=== PATIENT | male | born 1950 | race Caucasian/White ===

== ENCOUNTER 2019-03-14 09:04 | Outpatient (CLI) | payer MEDICARE, BC ==
--- NOTE | 2019-03-14 10:02 | CT ---
EXAM: CT chest without contrast per low-dose cancer screening protocol HISTORY: History of smoking and nicotine dependence; quit smoking in October with greater than 40 pack-y ear history COMPARISON: None TECHNIQUE: Multiple contiguous axial images were obtained in a CT of the chest without contrast per l ow-dose cancer screening protocol. Sagittal and coronal reformats were performed. FINDINGS: Pulmonary nodules: No suspicious pulmonary nodules are seen. No focal infiltrates are seen. Pleural space: No pneumothorax or pleural effusion are seen. Heart: The heart is normal in size. Calcifications are seen in the coronary arteries, aortic valve, a nd mitral valve. Mediastinum: No hilar or mediastinal lymphadenopathy appreciated on this limited noncontrast examinat ion. Bones: Mild degenerative changes are seen in the spine.. Visualized subdiaphragmatic structures: There is a 2.2 cm left adrenal mass. This has a mean Hounsfie ld unit value of -18 consistent with a fat-containing adrenal adenoma. IMPRESSION: Lung RADS category 1-negative.
== END 2019-03-14 09:05 | disposition home or self-care (01) ==
LOC: CT 09:04
PROVIDERS: ATTEND Family Medicine
DX: F17.210 Nicotine dependence, cigarettes, uncomplicated (principal); E03.9 Hypothyroidism, unspecified
CPT/HCPCS: G0297

== ENCOUNTER 2020-06-05 08:36 | Outpatient (CLI) | payer MEDICARE, BC ==
--- NOTE | 2020-06-05 09:59 | CT ---
CT of chest noncontrast low-dose screening HISTORY: Tobacco abuse. COMPARISON: 03/14/2019. FINDINGS: Lungs are well-inflated. Linear scarring at the right base is slightly greater than on the prior study. No parenchymal nodules evident. No pleural fluid or pneumothorax. Airways patent. Lack of contrast limits evaluation of the soft tissues. No mediastinal adenopathy evident. Coronary a rtery calcifications/stent. Lowest images again show low density adenoma of the left adrenal gland. IMPRESSION : Lung RADS category 2. Benign. Suggest routine screening.
== END 2020-06-05 08:37 | disposition home or self-care (01) ==
LOC: BICCT 08:36
PROVIDERS: ATTEND Family Medicine
DX: Z12.2 Encounter for screening for malignant neoplasm of respiratory organs (principal); Z87.891 Personal history of nicotine dependence
CPT/HCPCS: G0297

== ENCOUNTER 2021-06-05 06:51 | Outpatient (CLI) | payer MEDICARE, BC | END 2021-06-05 06:52 | disposition home or self-care (01) | LOC: BICULT 06:51 | PROVIDERS: ATTEND Family Medicine | DX: Z12.2 Encounter for screening for malignant neoplasm of respiratory organs (principal); Z13.6 Encounter for screening for cardiovascular disorders; Z87.891 Personal history of nicotine dependence; E27.8 Other specified disorders of adrenal gland | CPT/HCPCS: 71271; 76775 ==

== ENCOUNTER 2022-06-08 09:24 | Outpatient (CLI) | payer MEDICARE, BC | END 2022-06-08 09:25 | disposition home or self-care (01) | LOC: BICCT 09:24 | PROVIDERS: ATTEND Family Medicine | DX: Z12.2 Encounter for screening for malignant neoplasm of respiratory organs (principal); Z87.891 Personal history of nicotine dependence | CPT/HCPCS: 71271 ==